=== PATIENT | male | born 2000 | race Caucasian/White ===

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

== ENCOUNTER 2020-09-02 19:19 | Emergency (ER) | payer BC ==
[~2020-09-02] VITALS: Ht 172.7 cm; Wt 65.9 kg
[2020-09-02 19:35] VITALS: TEMP 97.7
[2020-09-02] MEDS ORDERED: CEPHALEXIN500 M1 PO (21:23)
[2020-09-02 21:42] VITALS: BP 132/76; PULSE 76
== END 2020-09-02 21:42 | disposition home or self-care (01) ==
LOC: COL.ER 19:19
DX: S62.502A Fracture of unspecified phalanx of left thumb, initial encounter for closed fracture (principal); S61.112A Laceration without foreign body of left thumb with damage to nail, initial encounter; W29.8XXA Contact with other powered hand tools and household machinery, initial encounter

== ENCOUNTER 2021-09-13 06:44 | Emergency (ER) | payer BC ==
[~2021-09-13] VITALS: Ht 175.3 cm; Wt 75.0 kg
[~2021-09-13 06:44] MED LIST changes: +CEPHALEXIN500 M1 PO
[2021-09-13 07:03] VITALS: TEMP 97.7
[2021-09-13 07:34] LABS: BASO # 0.1 K/mm3 (0.0-0.2); BASO % 0.5 % (0.0-2.0); EOS % 0.3 % (0.0-4.0); GRAN # 7.2 K/mm3 (1.4-6.5); HEMATOCRIT 43.7 % (42.0-52.0); HEMOGLOBIN 15.7 g/dl (13.5-18.0); LYMPH # 1.3 K/mm3 (1.2-3.4); LYMPH % 14.6 % (20.0-51.0); MEAN CELL VOLUME 86 fl (80.0-100.0); MEAN CORPUSCULAR HEMOGLOBIN 31 pg (27-31); MEAN CORPUSCULAR HGB CONC 36 g/dl (33.0-37.0); MEAN PLATELET VOLUME 9.5 fl (7.4-10.4); MONO # 0.5 K/mm3 (0.1-0.6); MONO % 5.4 % (1.7-9.3); PLATELET COUNT 246 K/mm3 (130-400); RED BLOOD COUNT 5.09 M/mm3 (4.20-5.60)
[2021-09-13 07:53] LABS: ALBUMIN 4.9 gm/dL (3.5-5.0); BILIRUBIN,TOTAL 1.4 mg/dL (0.2-1.2); CALCIUM 9.2 mg/dL (8.4-10.2); CREATININE, serum 0.85 mg/dL (0.72-1.25); POTASSIUM 3.9 mmol/L (3.5-4.5); TOTAL PROTEIN 7.3 gm/dL (6.2-8.1)
[2021-09-13 08:49] VITALS: BP 119/59; PULSE 71
[2021-09-13] MEDS ORDERED: ZOFRAN ODT4 MG PO (08:50)
== END 2021-09-13 08:58 | disposition home or self-care (01) ==
LOC: COL.ER 06:44
PROVIDERS: Student in an Organized Health Care Education/Training Program
DX: R11.10 Vomiting, unspecified (principal)
CPT/HCPCS: J2405; J7030